=== PATIENT | female | born 1980 | race Caucasian/White ===

== ENCOUNTER 2017-03-17 02:17 | Emergency (ER) | payer OTHER ==
[~2017-03-17] VITALS: Ht 170.2 cm; Wt 70.3 kg
[2017-03-17] MEDS ORDERED: AMOXICILLIN 50500 M1 PO (02:33)
[2017-03-17] MEDS ORDERED: HYDROCODONE-AP1 EAC6 PO (02:33)
[2017-03-17 02:39] VITALS: BP 140/68
== END 2017-03-17 02:40 | disposition home or self-care (01) ==
LOC: M.ERS 02:17
DX: K08.89 Other specified disorders of teeth and supporting structures (principal); F17.200 Nicotine dependence, unspecified, uncomplicated